=== PATIENT | female | born 1965 | race Caucasian/White ===

== ENCOUNTER 2022-05-06 14:40 | Outpatient (CLI) | payer BC, SELFPAY ==
--- NOTE | 2022-05-06 15:00 | CRLHL7_ITS ---
For Patients: As a result of the Century Cures Act, medical imaging exams and procedure reports are released immediately into your electronic medical record. You may view this report before your referring provider. If you have questions, please contact your health care provider. BILATERAL SCREENING MAMMOGRAM WITH COMPUTER-AIDED DETECTION AND TOMOSYNTHESIS TECHNIQUE: CC and MLO views were obtained. These mammographic images have been obtained using full-field digital technique. These mammographic images were interpreted with the benefit of computer-aided detection. Breast Tomosynthesis was used in this interpretation. COMPARISON FILM: 12/02/2019, 07/13/2018, 07/09/2017. FINDINGS: The breasts are heterogeneously dense, which may obscure small masses IMPRESSION: There is no radiographic evidence for malignancy. ASSESSMENT: BI-RADS Category 1: Negative RECOMMENDATION: Routine screening mammogram in 1 year. A lay language report of this examination will be provided to the patient. Gonzalo Alcala M.D. Diagnostic Radiologist [email or web address] SOPHIA/elsa hunter/Dictated by: Gonzalo Alcala MD @ 05/07/2022 9:25:00 AM (Electronically Signed)
== END 2022-05-06 14:41 | disposition home or self-care (01) ==
LOC: MAMMO 14:41
PROVIDERS: PCP Family Medicine; Visit Provider Family Medicine
DX: Z12.31 Encounter for screening mammogram for malignant neoplasm of breast (principal); R92.2 Inconclusive mammogram
CPT/HCPCS: 77063; 77067

== ENCOUNTER 2023-04-13 07:40 | Outpatient (CLI) | payer BC, SELFPAY | END 2023-04-13 07:41 | disposition home or self-care (01) | LOC: NFLDREF 11:03 | PROVIDERS: PCP Family Medicine; Referring Provider Family Medicine; Visit Provider Family Medicine | DX: Z00.00 Encounter for general adult medical examination without abnormal findings (principal); E03.9 Hypothyroidism, unspecified; E78.5 Hyperlipidemia, unspecified; E66.9 Obesity, unspecified; R03.0 Elevated blood-pressure reading, without diagnosis of hypertension | CPT/HCPCS: 80053; 80061; 84443 ==

== ENCOUNTER 2023-06-15 14:36 | Outpatient (CLI) | payer BC, SELFPAY ==
--- NOTE | 2023-06-15 15:00 | CRLHL7_ITS ---
For Patients: As a result of the Century Cures Act, medical imaging exams and procedure reports are released immediately into your electronic medical record. You may view this report before your referring provider. If you have questions, please contact your health care provider. BILATERAL SCREENING MAMMOGRAM WITH COMPUTER-AIDED DETECTION AND TOMOSYNTHESIS TECHNIQUE: CC and MLO views were obtained. These mammographic images have been obtained using full-field digital technique. These mammographic images were interpreted with the benefit of computer-aided detection. Breast Tomosynthesis was used in this interpretation. COMPARISON FILM: 05/06/22, 12/02/19, 07/23/18. FINDINGS: The breasts are heterogeneously dense, which may obscure small masses IMPRESSION: There is no radiographic evidence for malignancy. ASSESSMENT: BI-RADS Category 1: Negative RECOMMENDATION: Routine screening mammogram in 1 year. A lay language report of this examination will be provided to the patient. Gonzalo Alcala M.D. Diagnostic Radiologist [email or web address] REGI/Dictated by: Gonzalo Alcala MD @ 06/16/2023 8:30:00 AM (Electronically Signed)
== END 2023-06-15 14:37 | disposition home or self-care (01) ==
LOC: MAMMO 14:37
PROVIDERS: PCP Family Medicine; Visit Provider Family Medicine
DX: Z12.31 Encounter for screening mammogram for malignant neoplasm of breast (principal); R92.2 Inconclusive mammogram
CPT/HCPCS: 77063; 77067

== ENCOUNTER 2024-04-18 07:41 | Outpatient (CLI) | payer BC, SELFPAY ==
--- OUTSIDE RECORDS SUMMARY | 2024-04-18 13:02 | XMS_ITS | Clinical Summary ---
Author Organization [facility] Address [address] [place] [address] Care Team Providers Care Music Arranger Name Role Phone Marcelo Masters MD Primary Care Provider [phone] Source Comments You are receiving this document as you are listed as the primary care provider,follow-up provider, or the patient has been referred to you for consultation.This is in compliance with the Medicare and[facility] E[facility] Incentive Program,which states Providers who transition their patient to another setting of careor provider of care or refers their patient to another provider of care shouldprovide summary care record for each transition of care or referral. [facility] Allergies Active Allergy Reactions Criticality Noted Date Comments Other 10/24/1993 PN: LW Other1: -NKA Penicillins 08/14/2003 Review Contrast Media 10/24/1993 PN: LW CM1: CONTRAST- NKA Reaction : Review Food Intolerance 08/14/2003 PN: LW FI1: NKA Medications Medication Sig Dispensed Refills Start Date End Date Status Multiple Vitamins-Iron (MULTIVITAMIN/IRON OR) daily. Ac tive Active Problems Problem Noted Date Diagnosed Date Menorrhagia with irregular cycle 06/04/2015 History of basal cell carcinoma 04/12/2015 Resolved Problems Problem Noted Date Diagnosed Date Resolved Date Migraine 09/16/2004 04/27/2005 Overview: LW Onset: [id number] ; Migraine Aura w/o Headaches Immunizations Name Administration Dates Next Due Flu Vac (3+ yrs) 10/14/2012 Flu Vac Preserv Free (3+yrs) 06/27/2015 Influenza IIV4 (Quadrivalent) 0.5mL (61219) 08/06,07/31/2014 Influenza, Unspecified Formulation 08/14/2003 Rubella 08/19/1993 Td 08/22/2002 Tdap 09/08/2018 Family History Medical History Relation Name Comments Heart Disease Father Heart Disease Mother Cancer Brother 1 Heart Disease Brother 1 Heart Disease Brother 2 of [place] Cancer, Breast Maternal Aunt several aunt s, ages?? Cancer, Colon Negative Family History Cancer, Endometrial Negative Family History Diethylstilbestrol Exposure Negative Family History Relation Name Status Comments Father Mother Alive Brother 1 Brother 2 Maternal Aunt Maternal Grandfather Maternal Grandmother Paternal Grandfather Paternal Grandmother Social History Tobacco Use Types Packs/Day Years Used Date Smoking Tobacco: Never Smokeless Tobacco: Never Alcohol Use Standard Drinks/Week Comments Yes 2 (1 standard drink = 0.6 oz pure alcohol) Alcoholic Drinks/day: 1x weekly Sex and Gender Information Value Date Recorded Sex Assigned at Not on file Gender Identity Not on file Sexual Orientation Not on file Last Filed Vital Signs Vital Sign Reading Time Taken Comments Blood Pressure 136/80 09/08/2018 9:05 AM PROBATE JUDGE Pulse 50 09/08/2018 9:05 AM PROBATE JUDGE Temperature 37.2 ??C (99 ??F) 11/10/2011 11:10 AM PROBATE JUDGE Respiratory Rate 16 07/06/2018 1:25 PM CDT Oxygen Saturation 97% 07/06/2018 1:25 PM CDT Inhaled Oxygen Concentration - - Weight 82.1 kg (181 lb) 09/08/2018 9:05 AM PROBATE JUDGE Height 167.6 cm (5' 6) 09/08/2018 9:05 AM PROBATE JUDGE Body Mass Index 29.21 09/08/2018 9:05 AM PROBATE JUDGE Plan of Treatment Health Maintenance Due Date Last Done Comments HIV Screening (Preventive Services) 1981 HepB (1) 1984 Zoster/Shingles (1 of 2) 2015 Cervical Cancer Screening 05/30/20182014, 02/14/2014, 11/02/2012, Additional history exists Mammogram 07/13/2019 07/13/2018, 1002/2017, 06/12/2016, Additional history exists Adult Preventive Visit 09/08/2019 09/08/2018, 2015 COVID-19 Vaccine ( season) 2023 12/20/2020 Cholesterol 09/08/2023 09/08/2018, 07/05, 05/31/2015, Additional history exists Influenza (#1) 2024 08/27/2015, 06/06, 07/31/2014, Additional history exists Colonoscopy 07/06/2028 07/06/2018 DTaP/Tdap/Td (2 - Tdap) 09/08/2028 09/08/2018, 08/22 Hep C Screening (Preventive Services) Completed 09/08/2018 HepA Aged Out No longer eligi ble based on patient's age to complete this topic Hib Aged Out No longer eligi ble based on patient's age to complete this topic IPV (Polio) Aged Out No longer eligi ble based on patient's age to complete this topic MCV4 Aged Out No longer eligi ble based on patient's age to complete this topic Pneumococcal Aged Out No longer eligi ble based on patient's age to complete this topic Procedures Procedure Name Priority Date/Time Associated Diagnosis Comments HEPATITIS C ANTIBODY, WITH REFLEX Routine 09/08/2018 10:03 AM PROBATE JUDGE Annual physical exam LIPID PANEL & DIRECT LDL (IF NEEDED) Routine 09/08/2018 10:03 AM PROBATE JUDGE Annual physical exam MM MAMMOGRAM SCREENING BILAT W CAD Routine 07/13/2018 8:22 AM CDT Visit for screening mammogram ENDOSCOPY, COLON, SCREENING/DIAGNOSTIC Routine 07/06/2018 12:19 PM CDT Colon cancer screening ANATOMICAL PATH LIQUID BASED Routine 05/30/2015 5:06 PM CDT from Last 3 Months or Most Recently Relevant to Health Maintenance Results * (ABNORMAL) Lipid Panel and Direct LDL(If Needed) (09/08/2018 10:03 AM PROBATE JUDGE) Cholesterol 223(H) 0 - 199 mg/dL PN SOFT Triglycerides 143 4 - 149 mg/dL PN SOFT HDL Cholesterol 65 >39 mg/dL PN SOFT Cholesterol/HDL Ratio Screen 3.4 PN SOFT LDL Calculated 129 19 - 130 mg/dL PN SOFT Non HDL Chol, Calc 158 0 - 159 mg/dL PN SOFT Hours Fasting 12.0 PN SOFT 09/08/2018 10:0 3 AM PROBATE JUDGE 09/08/2018 10:03 AM PROBATE JUDGE Narrative PN SOFT - 09/08/2018 10:48 AM PROBATE JUDGE Performed at [facility], [address] [place] [address] CLIA number [id number] Marcelo Masters MD LAB_1 Performing Organization Address [facility] Co de Phone Number [address] [address] * Hepatitis C Antibody, with Reflex (09/08/2018 10:03 AM PROBATE JUDGE) Hepatitis C Antibody Nonreactive Nonreactive PN SOFT 09/08/2018 10:0 3 AM PROBATE JUDGE 09/08/2018 12:13 PM PROBATE JUDGE Narrative PN SOFT - 09/08/2018 12:53 PM PROBATE JUDGE Performed at [facility], [address] [place] [id number] CLIA number [id number] Marcelo Masters MD LAB_1 Performing Organization Address [facility] Co de Phone Number [address] [address] * MM Mammogram Screening Bilat W CAD (07/13/2018 8:22 AM CDT) Anatomical Region Laterality Modality Breast Bilateral Mammography Impressions 07/13/2018 9:30 AM CDT : ACR BI-RADS Category 1: Negative RECOMMENDATION: Follow Up Imaging in 12 months - Bilateral The results and recommendations of this examination will be communicated to the patient. Narrative 07/13/2018 9:30 AM CDT MM MAMMOGRAM SCREENING BILAT W CAD performed on 07/13/18 Compared to: 07/09/2017 MM Mammogram Screening Bilat W CAD, 06/12/2016 MM Mammogram Screening Bilat W CAD, and 05/31/2015 MM Mammogram Screening Bilat W CAD FINDINGS: Bilateral screening mammogram was performed with the assistance of Computer-Aided Detection. The breasts are heterogeneously dense, which may obscure small masses. There is no radiographic evidence of malignancy. ?? Katelyn Ferguson DO RAD DIPAK * Endoscopy, colon, diagnostic (07/06/2018 12:19 PM CDT) 07/06/2018 12:1 9 PM CDT Narrative GI ([facility]) - 07/06/2018 12:19 PM CDT Patient Name: Kristi Curtis Procedure Date: 07/06/2018 12:19 PM Date of : 1965 Admit Type: Outpatient Age: 52 Note Status: Finalized Attending MD: Nas Alexander MD Procedure: ? Colonoscopy Indications: ? Screening for colorectal malignant ? neoplasm, This is the patient's first ? colonoscopy Providers: ? Nas Alexander MD, Odette Aguilar RN Referring MD: ?Katelyn Pinto MD Medicines: ? Midazolam 3 mg IV, Fentanyl 150 ? micrograms IV Complications: ? No immediate complications. Estimated ? blood loss: None. Procedure: ? After I obtained informed consent, ? the scope was passed under direct ? vision. Throughout the procedure, the ? patient's blood pressure, pulse, and ? oxygen saturations were monitored ? continuously. The [id number] was ? introduced through the anus and ? advanced to the cecum, identified by ? the appendiceal orifice, ileocecal ? valve and palpation. The colonoscopy ? was performed without difficulty. The ? patient tolerated the procedure well. ? The quality of the bowel preparation ? was good. Findings: ? The colon (entire examined portion) appeared normal. Impression: ?- The entire examined colon is normal. ? - The rectum was too small to permit ? a retroflexed view but all graf were ? well seen. ? - No specimens collected. Recommendation: ?- Discharge patient to home. ? - Repeat colonoscopy in 10 years for ? screening purposes. Procedure Code(s): ?? --- Professional --- ? G0121, Colorectal cancer screening; ? colonoscopy on individual not meeting ? criteria for high risk Diagnosis Code(s): ?? --- Professional --- ? Z12.11, Encounter for screening for ? malignant neoplasm of colon CPT copyright 2016 [employer]. All rights reserved. The codes documented in this report are preliminary and upon apartment rental agent review may be revised to meet current compliance requirements. Nas Alexander MD 07/06/2018 1:15:23 PM This document has been electronically signed. Number of Addenda: 0 Note Initiated On: 07/06/2018 12:19 PM ? Endoscopy Report Procedure Note Nas Alexander MD - 07/06/2018 Patient Name: Kristi Curtis Procedure Date: 07/06/2018 12:19 PM Date of : 1965 Admit Type: Outpatient Age: 52 Note Status: Finalized Attending MD: Nas Alexander MD Procedure: Colonoscopy Indications: Screening for colorectal malignant neoplasm, This is the patient's first colonoscopy Providers: Nas Alexander MD, Odette Aguilar RN Referring MD: Katelyn Pinto MD Medicines: Midazolam 3 mg IV, Fentanyl 150 micrograms IV Complications: No immediate complications. Estimated blood loss: None. Procedure: After I obtained informed consent, the scope was passed under direct vision. Throughout the procedure, the patient's blood pressure, pulse, and oxygen saturations were monitored continuously. The [id number] was introduced through the anus and advanced to the cecum, identified by the appendiceal orifice, ileocecal valve and palpation. The colonoscopy was performed without difficulty. The patient tolerated the procedure well. The quality of the bowel preparation was good. Findings: The colon (entire examined portion) appeared normal. Impression: - The entire examined colon is normal. - The rectum was too small to permit a retroflexed view but all graf were well seen. - No specimens collected. Recommendation: - Discharge patient to home. - Repeat colonoscopy in 10 years for screening purposes. Procedure Code(s): --- Professional --- G0121, Colorectal cancer screening; colonoscopy on individual not meeting criteria for high risk Diagnosis Code(s): --- Professional --- Z12.11, Encounter for screening for malignant neoplasm of colon CPT copyright 2016 [employer]. All rights reserved. The codes documented in this report are preliminary and upon apartment rental agent review may be revised to meet current compliance requirements. Nas Alexander MD 07/06/2018 1:15:23 PM This document has been electronically signed. Number of Addenda: 0 Note Initiated On: 07/06/2018 12:19 PM Endoscopy Report Katelyn Ferguson DO PN GI PROCEDURE RUSTAME CHERY Performing Organization Address City/State/[facility] Co de Phone Number GI ([facility]) [place], [place] * Pap Smear (05/30/2015 5:06 PM CDT) 05/30/2015 5:06 PM CDT Narrative HP CONVERSION - 06/07/2015 10:54 AM [place] [address] FINAL GYNECOLOGICAL CYTOLOGY REPORT Pathology #: [id number] ?Date Obtained: 05/30/2015 ? Date Received: 05/31/2015 INTERPRETATION/RESULTS: Negative for Intraepithelial Lesion or Malignancy. SPECIMEN ADEQUACY: Satisfactory for Evaluation. ??No endocervical cells/transformation zone component present. Verified on 06/07/2015 ??by CYNTHIA LAU(ASCP) (electronic signature) CLINICAL NOTES: ?Abnormal bleeding: No, LMP: 05/13/2015, Menstrual status: None ?Apply, Current form of therapy: None apply LIQUID BASED PAP SMEAR SPECIMEN TYPE: ?ROUTINE CERVICAL PAP TEST PLEASE NOTE: The pap smear is a screening test designed to aid in the detection of cervical cancer and its precursor lesions. It is not a diagnostic procedure and should not be used as the sole means of detecting cervical cancer. Both false-positive and false-negative reports may occur. ? End of Report Transcriptions 11/13/2016 3:24 AM CSTNotes Recorded by Pam Lai RN on 06/27/2015 at 9:09 Tanika Berry,I am writing to let you know that your PAP and HPV result is negative. This means that your test result was normal. No cancer or precancerous cells were seen.Based on current cervical cancer screening recommendations, your next PAP and HPV should be in 3 years. Continue to schedule your annual preventive exams for your overall health.If you have questions about cervical cancer screening or your test results, callCervical Cancer Screening and Management [phone],Gina M Dudley, RN on behalf ofDr. Sherri Kerr, Medical DirectorOhio State East Hospitalralph Gray Cervical Cancer Screening and Management Katelyn Ferguson DO LAB_1 HP CONVERSION from Last 3 Months or Most Recently Relevant to Health Maintenance Care Teams Music Arranger Relationship Specialty [place] [id number] [address] [place] [id number] PCP - General Internal Medicine 09/08/18
--- OUTSIDE RECORDS SUMMARY | 2024-04-18 13:02 | XMS_ITS | Clinical Summary ---
Author Organization [employer] [facility] Address [place], [place] [address] Care Team Providers Care Mark Up Designer Name Role Phone Pcp, No Primary Care Provider Unavailabl e Allergies Active Allergy Reactions Criticality Noted Date Comments Iodinated Contrast Media *Unknown 09/27/2013 Penicillins Rash 08/15/2013 Medications Medication Sig Dispensed Refills Start Date End Date Status multivitamin capsule Take 1 capsule by mouth once daily. Active Active Problems Problem Noted Date Diagnosed Date Routine general medical exam ination at a health care facility 09/27/2013 Overview: Last Pap smear 11/02/12 neg Last mammo 11/02/12 normal. Lipids normal 03/2013 Family History Medical History Relation Name Comments Cancer Brother 4 pheochromocytom a Heart Disease Brother 5 MD Thyroid Disease Brother 6 Heart Disease Father Cancer-breast Maternal Aunt 1 Cancer-breast Maternal Aunt 2 Diabetes Maternal Aunt 3 Heart Disease Maternal Uncle 1 Heart Disease Maternal Uncle 2 Diabetes Maternal Uncle 3 Hyperlipidemia Mother Relation Name Status Comments Brother 1 Brother 2 Brother 3 Alive Brother 4 Brother 5 Brother 6 Father Maternal Aunt 1 Maternal Aunt 2 Maternal Aunt 3 Maternal Grandfather Maternal Grandmother Maternal Uncle 1 Maternal Uncle 2 Maternal Uncle 3 Mother Alive Paternal Grandfather Paternal Grandmother Social History Tobacco Use Types Packs/Day Years Used Date Smoking Tobacco: Never Smokeless Tobacco: Never Alcohol Use Standard Drinks/Week Comments Yes 0 (1 standard drink = 0.6 oz pur e alcohol) social Sex and Gender Information Value Date Recorded Sex Assigned at Not on file Gender Identity Not on file Sexual Orientation Not on file Obstetrics History Last Filed Vital Signs Vital Sign Reading Time Taken Comments Blood Pressure 161/104 02/03/2019 3:00 PM CDT Pulse 63 02/03/2019 2:44 PM CDT Temperature 37.8 ??C (100 ??F) 02/03/2019 2:42 PM CDT Respiratory Rate 18 02/03/2019 2:42 PM CDT Oxygen Saturation 99% 02/03/2019 2:45 PM CDT Inhaled Oxygen Concentration - - Weight 83.7 kg (184 lb 8.4 oz) 02/03/2019 2:42 P M CDT Height 167.6 cm (5' 6) 02/03/2019 2:42 PM CDT Body Mass Index 29.78 02/03/2019 2:42 PM CDT Plan of Treatment Health Maintenance Due Date Last Done Comments Tdap 1976 Depression screening for age 12+ 1977 HIV for age 15-65 1980 Hepatitis C screening for ag e 18-79 1983 Tetanus booster 1985 Pap test for age 21-65 1986 Colonoscopy through age 75 2010 Lipids for age 45-75 2010 Mammogram for age 45-75 2010 Zoster (shingles) series for age 50+ (1 of 2) 2015 BMI (ht and wt on same day) for age 18+ 02/04/2020 02/03/2019 COVID-19 vaccine series (2022-24 season) 2023 Influenza for age 50-64 06/05/2024 Pneumococcal series for age 6-64 Aged Out No longer eligible based on patient's age to complete this topic Care Teams Mark Up Designer Relationship Specialty Start Date End Date Pcp, No . PCP - General 08/15/13
== END 2024-04-18 07:42 | disposition home or self-care (01) ==
LOC: NFLDREF 12:59
PROVIDERS: PCP Family Medicine; Referring Provider Family Medicine; Visit Provider Family Medicine
DX: R79.89 Other specified abnormal findings of blood chemistry (principal); E78.5 Hyperlipidemia, unspecified; E03.9 Hypothyroidism, unspecified; R73.01 Impaired fasting glucose
CPT/HCPCS: 80053; 80061; 84443

== ENCOUNTER 2025-04-24 07:48 | Outpatient (CLI) | payer BC, SELFPAY | END 2025-04-24 07:49 | disposition home or self-care (01) | LOC: NFLDREF 16:55 | PROVIDERS: PCP Family Medicine; Referring Provider Family Medicine; Visit Provider Family Medicine | DX: E78.5 Hyperlipidemia, unspecified (principal); E03.9 Hypothyroidism, unspecified; R73.01 Impaired fasting glucose; E66.9 Obesity, unspecified | CPT/HCPCS: 80053; 80061; 84443 ==

== ENCOUNTER 2025-08-17 15:30 | Outpatient (CLI) | payer BC, SELFPAY ==
--- NOTE | 2025-08-17 15:40 | CRLHL7_ITS ---
For Patients: As a result of the Century Cures Act, medical imaging exams and procedure reports are released immediately into your electronic medical record. You may view this report before your referring provider. If you have questions, please contact your health care provider. INDICATION: BILATERAL SCREENING MAMMOGRAM, ASYMPTOMATIC 60 Y/O FEMALE COMPARISON: 06/15/2023, 05/06/2022, 12/02/2019 TECHNIQUE: Digital mammogram in CC and MLO projections including computer-aided detection (CAD) and tomosynthesis. BREAST COMPOSITION: There are scattered areas of fibroglandular density. FINDINGS: No suspicious findings. ASSESSMENT: BI-RADS 1 Negative RECOMMENDATION: Annual screening mammogram. A lay language report of this examination will be provided to the patient. Dictated by: Gonzalo Alcala MD @ 08/18/2025 10:16:57 (Electronically Signed)
== END 2025-08-17 15:31 | disposition home or self-care (01) ==
PROVIDERS: PCP Family Medicine; Visit Provider Family Medicine
DX: Z12.31 Encounter for screening mammogram for malignant neoplasm of breast (principal)
CPT/HCPCS: 77063; 77067